=== PATIENT | female | born 1970 | race Caucasian/White ===

== ENCOUNTER 2023-05-31 13:15 | Emergency (ER) | payer OTHER ==
[~2023-05-31] VITALS: Ht 160 cm; Wt 59.0 kg
[2023-05-31] MEDS ORDERED: ATOR40TA PO (14:03)
[2023-05-31] MEDS ORDERED: MELA3TAB41 PO (14:03)
[2023-05-31] MEDS ORDERED: OLAN5TAB3 PO (14:03)
[2023-05-31] MEDS ORDERED: ASPI-1169 PO (14:03)
[2023-05-31] MEDS ORDERED: SENN-261 PO (14:03)
[2023-05-31] MEDS ORDERED: DOCU-141 PO (14:03)
[2023-05-31] MEDS ORDERED: CLON1TAB12 PO (14:03)
[2023-05-31] MEDS ORDERED: AMLO-213 PO (14:03)
[2023-05-31] MEDS ORDERED: FLUO20CA42 PO (14:03)
[2023-05-31 15:27] LABS: ALANINE AMINOTRANSFERASE 52 U/L (12-78); ALBUMIN 3.2 g/dL (3.4-5.0); ALCOHOL, BLOOD < 3 mg/dL (0-10); ALKALINE PHOSPHATASE 123 U/L (46-116); ASPARTATE AMINOTRANSFERASE 27 U/L (15-37); BILIRUBIN,DIRECT 0.1 mg/dL (0.0-0.2); BILIRUBIN,TOTAL 0.3 mg/dL (0.2-1.0); CALCIUM, SERUM 9.7 mg/dL (8.5-10.1); CARBON DIOXIDE 25 mmol/L (21-32); CHLORIDE 101 mmol/L (98-107); CREATININE 0.6 mg/dL (0.6-1.3); GLUCOSE 84 mg/dL (74-106); POTASSIUM 3.2 mmol/L (3.5-5.1); SODIUM SERUM 138 mmol/L (136-145); TOTAL PROTEIN, SERUM 7.7 g/dL (6.4-8.2); UREA NITROGEN, BLOOD 14 mg/dL (7-18)
[2023-05-31 15:34] LABS: ACETAMINOPHEN 0 ug/ml (10-30); SALICYLATE 2.2 mg/dL (2.8-20.0)
[2023-05-31 16:30] LABS: APPEARANCE,URINE CLOUDY (CLEAR); BILIRUBIN,URINE NEGATIVE (NEGATIVE); BLOOD, URINE 2+ Ery/uL (NEGATIVE); COLOR,URINE YELLOW (YELLOW); KETONES,URINE 1+ mg/dL (NEGATIVE); LEUKOCYTE ESTERASE ,URINE 3+ (NEGATIVE); NITRITE, URINE POSITIVE (NEGATIVE); PH,URINE 6.5 (5.0-8.0); PROTEIN,URINE NEGATIVE (NEGATIVE); UGLUCOSE NEGATIVE (NEGATIVE); UROBILINOGEN,URINE 0.2 EU/dL (0.2)
[2023-05-31 16:31] LABS: BASOPHILS % (AUTO) 0.3 % (0.0-2.0); EOSINOPHILS % (AUTO) 0.3 % (0.0-6.0); HEMATOCRIT 43 % (33-45); HEMOGLOBIN 14.8 g/dL (11.5-14.8); LYMPHOCYTES # (AUTO) 1.8 K/uL (0.8-4.8); MEAN CORPUSCULAR HEMOGLOBIN 30 PG (26.0-33.0); MEAN CORPUSCULAR HGB CONC 35 g/dl (31.0-36.0); MEAN CORPUSCULAR VOLUME 87 fL (82-100); MONOCYTES # (AUTO) 0.6 K/uL (0.1-1.30); MONOCYTES % (AUTO) 5.7 % (2.0-12.0); NEUTROPHILS # (AUTO) 7.4 K/uL (1.8-8.9); NEUTROPHILS % (AUTO) 75.7 % (43.0-81.0); PLATELET COUNT (AUTO) 246 K/uL (150-450); RED BLOOD CELL COUNT(AUTO) 4.92 MIL/uL (4.0-5.2); RED CELL DISTRIBUTION WIDTH 12.7 % (11.5-15.0); WHITE BLOOD COUNT (AUTO) 9.8 K/uL (4.3-11.0)
[2023-05-31 16:49] LABS: AMPHETAMINE, URINE NEGATIVE (NEGATIVE); BARBITURATE, URINE NEGATIVE (NEGATIVE); BENZODIAZEPINE, URINE NEGATIVE (NEGATIVE); CANNABINOID, URINE NEGATIVE (NEGATIVE); COCCAINE, URINE NEGATIVE (NEGATIVE); OPIATE, URINE NEGATIVE (NEGATIVE); PHENCYCLIDINE SCREEN,URINE NEGATIVE (NEGATIVE)
[2023-05-31] MEDS: CEFTRIAXONE 1 G in IV D5W 50 ML IV ONE (17:00)
[2023-05-31 18:07] LABS: ADD URINE CULTURE YES; BACTERIA,URINE 2+ /HPF (None Seen); SQUAMOUS EPITHELIAL CELL,UR Many /HPF (None Seen); WBC,URINE 21-50 /HPF (0-3); YEAST,URINE Few /HPF (None Seen)
[2023-05-31] MEDS ORDERED: CEFTRIAXONE 1GM BAG (ER ONLY) 50 ML IV ONE (19:16)
[2023-05-31] MEDS ORDERED: CEFD300C3 PO (21:18)
[2023-05-31] MEDS ORDERED: HALOPERIDOL LACTATE INJ 5 MG/ML VIAL ONE (21:22)
[2023-05-31] MEDS: LORAZEPAM INJ 2 MG/ML VIAL IM ONE (21:31)
[2023-05-31] MEDS ORDERED: diphenhydrAMINE HCL 50 MG/ML VIAL ONE (21:32)
[2023-05-31] MEDS: HALOPERIDOL LACTATE INJ 5 MG/ML VIAL IM ONE (21:55)
[2023-05-31] MEDS: diphenhydrAMINE HCL 50 MG/ML VIAL IM ONE (21:55)
[2023-06-01 09:39] VITALS: BP 110/84; TEMP 98.1; O2SAT 99
== END 2023-06-01 09:40 | disposition home or self-care (01) ==
LOC: ER 13:18
DX: N39.0 Urinary tract infection, site not specified (principal); R45.1 Restlessness and agitation; R46.1 Bizarre personal appearance; E87.6 Hypokalemia; E88.09 Other disorders of plasma-protein metabolism, not elsewhere classified; I10 Essential (primary) hypertension; E78.5 Hyperlipidemia, unspecified; Z86.73 Personal history of transient ischemic attack (TIA), and cerebral infarction without residual deficits
CPT/HCPCS: 99285; 96372 ×2; 96365; 85025; 80048; 87086; 80076; 81001; 36415; 80143; 80320; 80307; J1200; J1630; J0696; G0480

== ENCOUNTER 2023-06-05 10:41 | Inpatient (IN) | payer OTHER ==
[~2023-06-05] VITALS: Ht 160 cm; Wt 64.9 kg
[~2023-06-05 10:41] MED LIST: AMLO-213 PO; ASPI-1169 PO; ATOR40TA PO; CEFD300C3 PO; CLON1TAB12 PO; DOCU-141 PO; FLUO20CA42 PO; MELA3TAB41 PO; OLAN5TAB3 PO; SENN-261 PO
[2023-06-05 11:32] LABS: BASOPHILS % (AUTO) 0.2 % (0.0-2.0); EOSINOPHILS # (AUTO) 0.1 K/uL (0.0-0.7); EOSINOPHILS % (AUTO) 1.4 % (0.0-6.0); HEMATOCRIT 41 % (33-45); LYMPHOCYTES # (AUTO) 2.2 K/uL (0.8-4.8); LYMPHOCYTES % (AUTO) 30.3 % (20.0-44.0); MEAN CORPUSCULAR HEMOGLOBIN 30 PG (26.0-33.0); MEAN CORPUSCULAR HGB CONC 34 g/dl (31.0-36.0); MEAN CORPUSCULAR VOLUME 88 fL (82-100); MONOCYTES # (AUTO) 0.5 K/uL (0.1-1.30); MONOCYTES % (AUTO) 6.2 % (2.0-12.0); NEUTROPHILS # (AUTO) 4.5 K/uL (1.8-8.9); NEUTROPHILS % (AUTO) 61.9 % (43.0-81.0); PLATELET COUNT (AUTO) 280 K/uL (150-450); RED BLOOD CELL COUNT(AUTO) 4.71 MIL/uL (4.0-5.2); RED CELL DISTRIBUTION WIDTH 12.8 % (11.5-15.0); WHITE BLOOD COUNT (AUTO) 7.2 K/uL (4.3-11.0)
[2023-06-05 12:02] LABS: APPEARANCE,URINE CLEAR (CLEAR); BILIRUBIN,URINE NEGATIVE (NEGATIVE); BLOOD, URINE NEGATIVE Ery/uL (NEGATIVE); COLOR,URINE YELLOW (YELLOW); KETONES,URINE NEGATIVE (NEGATIVE); LEUKOCYTE ESTERASE ,URINE NEGATIVE (NEGATIVE); NITRITE, URINE POSITIVE (NEGATIVE); PROTEIN,URINE NEGATIVE (NEGATIVE); UGLUCOSE NEGATIVE (NEGATIVE); UROBILINOGEN,URINE 0.2 EU/dL (0.2)
[2023-06-05 12:14] LABS: CALCIUM, SERUM 9.1 mg/dL (8.5-10.1); CARBON DIOXIDE 27 mmol/L (21-32); CHLORIDE 106 mmol/L (98-107); CREATININE 0.7 mg/dL (0.6-1.3); GLUCOSE 105 mg/dL (74-106); POTASSIUM 3.7 mmol/L (3.5-5.1); SODIUM SERUM 140 mmol/L (136-145); UREA NITROGEN, BLOOD 9 mg/dL (7-18)
[2023-06-05 12:16] LABS: RBC,URINE 0-2 /HPF (0-2)
[2023-06-05 12:17] LABS: ADD URINE CULTURE YES; BACTERIA,URINE 1+ /HPF (None Seen); SQUAMOUS EPITHELIAL CELL,UR 0-2 /HPF (None Seen)
[2023-06-05 12:20] LABS: URIC ACID CRYSTALS,URINE Few /HPF (None Seen)
[2023-06-05 12:27] LABS: ALANINE AMINOTRANSFERASE 34 U/L (12-78); ALBUMIN 2.9 g/dL (3.4-5.0); ALCOHOL, BLOOD < 3 mg/dL (0-10); ALKALINE PHOSPHATASE 95 U/L (46-116); ASPARTATE AMINOTRANSFERASE 18 U/L (15-37); BILIRUBIN,DIRECT 0.1 mg/dL (0.0-0.2); BILIRUBIN,TOTAL 0.1 mg/dL (0.2-1.0)
[2023-06-05 12:28] LABS: ACETAMINOPHEN 0 ug/ml (10-30); SALICYLATE 1.8 mg/dL (2.8-20.0)
[2023-06-05 12:30] LABS: AMPHETAMINE, URINE NEGATIVE (NEGATIVE); BARBITURATE, URINE NEGATIVE (NEGATIVE); BENZODIAZEPINE, URINE NEGATIVE (NEGATIVE); CANNABINOID, URINE NEGATIVE (NEGATIVE); COCCAINE, URINE NEGATIVE (NEGATIVE); OPIATE, URINE NEGATIVE (NEGATIVE); PHENCYCLIDINE SCREEN,URINE NEGATIVE (NEGATIVE)
[2023-06-05] MEDS ORDERED: clonazePAM 1 MG TABLET PO PRN (14:30)
[2023-06-05] MEDS ORDERED: SENNOSIDES 8.6 MG TABLET PO PRN (14:30)
[2023-06-05] MEDS ORDERED: Z GUARD REMEDY 4 OZ OINT TP PRN (14:30)
[2023-06-05] MEDS ORDERED: ACETAMINOPHEN 325 MG TABLET PO PRN (14:30)
[2023-06-05] MEDS ORDERED: ONDANSETRON HCL/PF 4 MG/2 ML VIAL IVP PRN (14:30)
[2023-06-05 16:00] VITALS: BP 135/88; TEMP 98.1; O2SAT 96
[2023-06-05] MEDS ORDERED: ENOXAPARIN SODIUM 40 MG/0.4 ML DISP.SYRIN SQ ONE (17:26)
[2023-06-05] MEDS: ENOXAPARIN SODIUM 40 MG/0.4 ML DISP.SYRIN SQ SCH (17:30)
[2023-06-05 20:00] VITALS: BP 111/97; TEMP 98.1; O2SAT 94
[2023-06-06 04:00] VITALS: BP 128/76; TEMP 97.7; O2SAT 94
[2023-06-06 07:34] LABS: BASOPHILS % (AUTO) 0.5 % (0.0-2.0); EOSINOPHILS # (AUTO) 0.1 K/uL (0.0-0.7); EOSINOPHILS % (AUTO) 1.3 % (0.0-6.0); HEMATOCRIT 41 % (33-45); HEMOGLOBIN 14.1 g/dL (11.5-14.8); LYMPHOCYTES # (AUTO) 2.1 K/uL (0.8-4.8); LYMPHOCYTES % (AUTO) 30.3 % (20.0-44.0); MEAN CORPUSCULAR HEMOGLOBIN 30 PG (26.0-33.0); MEAN CORPUSCULAR HGB CONC 34 g/dl (31.0-36.0); MEAN CORPUSCULAR VOLUME 87 fL (82-100); MONOCYTES # (AUTO) 0.5 K/uL (0.1-1.30); MONOCYTES % (AUTO) 7.8 % (2.0-12.0); NEUTROPHILS # (AUTO) 4.1 K/uL (1.8-8.9); NEUTROPHILS % (AUTO) 60.1 % (43.0-81.0); PLATELET COUNT (AUTO) 286 K/uL (150-450); RED BLOOD CELL COUNT(AUTO) 4.71 MIL/uL (4.0-5.2); RED CELL DISTRIBUTION WIDTH 12.6 % (11.5-15.0); WHITE BLOOD COUNT (AUTO) 6.8 K/uL (4.3-11.0)
[2023-06-06] MEDS: FLUOXETINE HCL 20 MG CAPSULE PO SCH (08:19)
[2023-06-06] MEDS: PANTOPRAZOLE 40 MG TABLET.DR PO SCH (08:19)
[2023-06-06] MEDS: DOCUSATE SODIUM 100 MG CAPSULE PO SCH (08:19)
[2023-06-06] MEDS: ASPIRIN 81 MG TAB.CHEW PO SCH (08:19)
[2023-06-06] MEDS: ATORVASTATIN 40 MG TABLET PO SCH (08:19)
[2023-06-06 09:01] LABS: CALCIUM, SERUM 9.1 mg/dL (8.5-10.1); CREATININE 0.6 mg/dL (0.6-1.3); MAGNESIUM 1.7 mg/dL (1.8-2.4); PHOSPHORUS 3.1 mg/dL (2.5-4.9); POTASSIUM 3.5 mmol/L (3.5-5.1)
[2023-06-06] MEDS: OLANZAPINE ZYDIS 5 MG TAB.RAPDIS PO SCH (12:03)
[2023-06-06 12:04] VITALS: BP 122/74; TEMP 98; O2SAT 96
[2023-06-06] MEDS: clonazePAM 0.5 MG TABLET PO PRN (14:14)
[2023-06-06] MEDS ORDERED: HALOPERIDOL DECANOATE IM 100 MG/ML AMPUL IM ONE (14:30)
[2023-06-06] MEDS ORDERED: LORAZEPAM INJ 2 MG/ML VIAL IV PRN (14:30)
[2023-06-06] MEDS: HALOPERIDOL LACTATE INJ 5 MG/ML VIAL IM ONE (14:46)
[2023-06-06] MEDS: LORAZEPAM 1 MG TABLET PO PRN (14:46)
[2023-06-06 20:00] VITALS: BP 121/80; TEMP 98.6; O2SAT 95
[2023-06-07 04:00] VITALS: BP 115/78; TEMP 97.3; O2SAT 95
[2023-06-07 08:42] VITALS: BP 124/79; TEMP 98.2; O2SAT 97
[2023-06-07 12:00] VITALS: BP 120/70; TEMP 98; O2SAT 98
[2023-06-07 20:00] VITALS: BP 116/72; TEMP 99; O2SAT 96
[2023-06-08 04:00] VITALS: BP 124/67; TEMP 98.2; O2SAT 96
[2023-06-08 08:00] VITALS: BP 126/93; TEMP 97.4; O2SAT 94
[2023-06-08] MEDS: OLANZAPINE 5 MG TABLET PO PRN (11:05)
[2023-06-08 12:00] VITALS: BP 116/90; TEMP 98; O2SAT 96
[2023-06-08] MEDS: OLANZAPINE ZYDIS 5 MG TAB.RAPDIS PO SCH (14:59)
[2023-06-08 16:00] VITALS: BP 151/80; TEMP 97.9; O2SAT 96
[2023-06-08] MEDS: Magnesium 1GM/D5W 100ML PREMIX 100 ML IV SCH (17:38)
[2023-06-08 20:00] VITALS: BP 137/82; TEMP 99; O2SAT 95
[2023-06-09 04:00] VITALS: BP 140/75; TEMP 98.9; O2SAT 97
[2023-06-09] MEDS: FLUOXETINE HCL 20 MG CAPSULE PO SCH (08:41)
[2023-06-09] MEDS ORDERED: FLUOXETINE HCL 20 MG CAPSULE PO SCH (09:00)
[2023-06-09 12:00] VITALS: BP 120/79; TEMP 98; O2SAT 97
[2023-06-09] MEDS ORDERED: DIVALPROEX SODIUM 125 MG TABLET.DR PO SCH (12:30)
[2023-06-09] MEDS: OLANZAPINE 10 MG VIAL IM ONE (12:32)
[2023-06-09] MEDS: DIVALPROEX SODIUM 250 MG TABLET.DR PO SCH (15:34)
[2023-06-09 20:00] VITALS: BP 121/72; TEMP 97.6; O2SAT 97
[2023-06-09] MEDS: OLANZAPINE ZYDIS 5 MG TAB.RAPDIS PO SCH (21:51)
[2023-06-10 04:00] VITALS: BP 149/69; TEMP 98.1; O2SAT 97
[2023-06-10 06:44] LABS: BASOPHILS % (AUTO) 0.3 % (0.0-2.0); EOSINOPHILS # (AUTO) 0.1 K/uL (0.0-0.7); EOSINOPHILS % (AUTO) 0.7 % (0.0-6.0); HEMATOCRIT 41 % (33-45); LYMPHOCYTES # (AUTO) 2.5 K/uL (0.8-4.8); LYMPHOCYTES % (AUTO) 30.9 % (20.0-44.0); MEAN CORPUSCULAR HEMOGLOBIN 30 PG (26.0-33.0); MEAN CORPUSCULAR HGB CONC 34 g/dl (31.0-36.0); MEAN CORPUSCULAR VOLUME 88 fL (82-100); MONOCYTES # (AUTO) 0.6 K/uL (0.1-1.30); MONOCYTES % (AUTO) 7.8 % (2.0-12.0); NEUTROPHILS # (AUTO) 4.9 K/uL (1.8-8.9); NEUTROPHILS % (AUTO) 60.3 % (43.0-81.0); PLATELET COUNT (AUTO) 276 K/uL (150-450); RED CELL DISTRIBUTION WIDTH 12.7 % (11.5-15.0); WHITE BLOOD COUNT (AUTO) 8.1 K/uL (4.3-11.0)
[2023-06-10 07:04] LABS: CALCIUM, SERUM 9.1 mg/dL (8.5-10.1); CREATININE 0.6 mg/dL (0.6-1.3); PHOSPHORUS 3.2 mg/dL (2.5-4.9); POTASSIUM 3.8 mmol/L (3.5-5.1)
[2023-06-10 08:00] VITALS: BP 126/72; TEMP 98.5; O2SAT 98
[2023-06-10] MEDS ORDERED: DIVA250T4 PO (14:19)
[2023-06-10] MEDS ORDERED: SULF1TAB48 PO (14:19)
[2023-06-10] MEDS ORDERED: FAMO-131 PO (14:19)
[2023-06-10 16:00] VITALS: BP 128/81; TEMP 97.9; O2SAT 98
[2023-06-10 20:00] VITALS: BP 113/74; TEMP 97; O2SAT 97
[2023-06-11 04:00] VITALS: BP 114/68; TEMP 97.6; O2SAT 97
[2023-06-11 08:00] VITALS: BP 124/70; TEMP 97.5; O2SAT 97
[2023-06-11] MEDS ORDERED: LORAZEPAM INJ 2 MG/ML VIAL IM ONE (10:30)
[2023-06-11] MEDS: risperiDONE 1 MG TABLET PO SCH (10:30)
[2023-06-11] MEDS: DIVALPROEX SODIUM 250 MG TABLET.DR PO ONE (12:24)
[2023-06-11 16:00] VITALS: BP 137/82; TEMP 98; O2SAT 99
[2023-06-11] MEDS: DIVALPROEX SODIUM 250 MG TABLET.DR PO SCH (17:54)
[2023-06-11 20:00] VITALS: BP 119/74; TEMP 97.9; O2SAT 98
[2023-06-11] MEDS: OLANZAPINE ZYDIS 5 MG TAB.RAPDIS PO SCH (21:54)
[2023-06-12 04:00] VITALS: BP 118/63; TEMP 98.1; O2SAT 97
[2023-06-12 08:00] VITALS: BP 110/76; TEMP 97.7; O2SAT 96
[2023-06-12 16:00] VITALS: BP 123/75; TEMP 98.2; O2SAT 95
[2023-06-12 20:00] VITALS: BP 125/70; TEMP 98.1; O2SAT 95
[2023-06-13 04:00] VITALS: BP 132/68; TEMP 98.1; O2SAT 95
[2023-06-13 08:00] VITALS: BP 118/77; TEMP 97.8; O2SAT 95
[2023-06-13 16:00] VITALS: BP 119/61; TEMP 97.8; O2SAT 97
[2023-06-13 20:00] VITALS: BP 105/62; TEMP 97.7; O2SAT 96
[2023-06-14 04:00] VITALS: BP 133/67; TEMP 97.9; O2SAT 96
[2023-06-14 08:00] VITALS: BP 131/64; TEMP 98.6; O2SAT 98
[2023-06-14 12:00] VITALS: BP 131/66; TEMP 98.6; O2SAT 96
[2023-06-14 16:00] VITALS: BP 137/74; TEMP 97.7; O2SAT 94
[2023-06-14 20:00] VITALS: BP 111/58; TEMP 97.7; O2SAT 94
[2023-06-15 04:00] VITALS: BP 144/75; TEMP 98; O2SAT 99
[2023-06-15 08:00] VITALS: BP 142/84; TEMP 98; O2SAT 95
[2023-06-15 16:00] VITALS: BP 142/84; TEMP 98; O2SAT 95
[2023-06-15 20:00] VITALS: BP 113/48; TEMP 98.2; O2SAT 95
[2023-06-16 04:00] VITALS: BP 122/65; TEMP 98.7; O2SAT 95
[2023-06-16 08:00] VITALS: BP 127/72; TEMP 97.2; O2SAT 95
[2023-06-16 16:00] VITALS: BP 150/82; TEMP 98.7; O2SAT 95
[2023-06-16 21:47] VITALS: BP 133/70; TEMP 98.7; O2SAT 95
[2023-06-16 22:00] VITALS: BP 133/70; TEMP 98.7; O2SAT 95
[2023-06-17 08:00] VITALS: BP 117/80; TEMP 99; O2SAT 95
[2023-06-17] MEDS: MAGNESIUM HYDROXIDE 30 ML UDC PO PRN (09:35)
[2023-06-17] MEDS ORDERED: POLYETHYLENE GLYCOL 3350 17 GM POWD.PACK PO PRN (11:00)
[2023-06-17] MEDS: OLANZAPINE 10 MG VIAL IM ONE (11:18)
[2023-06-17 16:00] VITALS: BP 121/72; TEMP 98.7; O2SAT 95
[2023-06-17 20:00] VITALS: BP 130/78; TEMP 98; O2SAT 96
[2023-06-18 04:00] VITALS: BP 134/88; TEMP 97.6; O2SAT 95
[2023-06-18 08:00] VITALS: BP 115/82; TEMP 97.7; O2SAT 100
[2023-06-18 20:00] VITALS: BP 98/61; TEMP 98.5; O2SAT 97
[2023-06-19 04:00] VITALS: BP 138/77; TEMP 97.7; O2SAT 97
[2023-06-19 08:00] VITALS: BP 124/75; TEMP 98; O2SAT 98
[2023-06-19 09:46] LABS: BASOPHILS % (AUTO) 0.3 % (0.0-2.0); EOSINOPHILS # (AUTO) 0.1 K/uL (0.0-0.7); EOSINOPHILS % (AUTO) 0.9 % (0.0-6.0); HEMATOCRIT 41 % (33-45); HEMOGLOBIN 13.6 g/dL (11.5-14.8); LYMPHOCYTES % (AUTO) 35.2 % (20.0-44.0); MEAN CORPUSCULAR HEMOGLOBIN 29 PG (26.0-33.0); MEAN CORPUSCULAR HGB CONC 33 g/dl (31.0-36.0); MEAN CORPUSCULAR VOLUME 88 fL (82-100); MONOCYTES # (AUTO) 0.4 K/uL (0.1-1.30); MONOCYTES % (AUTO) 6.3 % (2.0-12.0); NEUTROPHILS # (AUTO) 3.2 K/uL (1.8-8.9); NEUTROPHILS % (AUTO) 57.3 % (43.0-81.0); PLATELET COUNT (AUTO) 220 K/uL (150-450); RED BLOOD CELL COUNT(AUTO) 4.67 MIL/uL (4.0-5.2); RED CELL DISTRIBUTION WIDTH 12.6 % (11.5-15.0); WHITE BLOOD COUNT (AUTO) 5.6 K/uL (4.3-11.0)
[2023-06-19 10:44] LABS: CALCIUM, SERUM 9.2 mg/dL (8.5-10.1); CREATININE 0.6 mg/dL (0.6-1.3); PHOSPHORUS 4.1 mg/dL (2.5-4.9); POTASSIUM 4.2 mmol/L (3.5-5.1)
[2023-06-19 16:00] VITALS: BP 125/74; TEMP 98; O2SAT 98
[2023-06-20 04:00] VITALS: BP 110/61; TEMP 97.4; O2SAT 96
[2023-06-20 16:02] VITALS: BP 138/77; TEMP 97.7; O2SAT 97
[2023-06-20 21:02] VITALS: BP 112/68; TEMP 97.7
[2023-06-21 04:00] VITALS: BP 130/71; TEMP 97.6; O2SAT 94
== END 2023-06-21 15:20 | DRG 463 ==
LOC: ER 10:46 → MEDSG1 17:07
PROVIDERS: ADMIT Nurse Practitioner Family; ATTEND Internal Medicine
DX: N39.0 Urinary tract infection, site not specified (principal); G93.41 Metabolic encephalopathy; E88.09 Other disorders of plasma-protein metabolism, not elsewhere classified; F01.518 Vascular dementia, unspecified severity, with other behavioral disturbance; F05 Delirium due to known physiological condition; G93.89 Other specified disorders of brain; R62.7 Adult failure to thrive; B96.1 Klebsiella pneumoniae [K. pneumoniae] as the cause of diseases classified elsewhere; E78.5 Hyperlipidemia, unspecified; E83.42 Hypomagnesemia; F01.53 Vascular dementia, unspecified severity, with mood disturbance; I10 Essential (primary) hypertension; I69.354 Hemiplegia and hemiparesis following cerebral infarction affecting left non-dominant side; R47.01 Aphasia; Z79.82 Long term (current) use of aspirin; Z87.891 Personal history of nicotine dependence; F31.9 Bipolar disorder, unspecified; Z20.822 Contact with and (suspected) exposure to COVID-19; Z68.25 Body mass index [BMI] 25.0-25.9, adult; F25.9 Schizoaffective disorder, unspecified
CPT/HCPCS: 36415; 70450-TC; 80048-TC; 80061-TC; 80076-TC; 81001; 83735-TC; 84100-TC; 85025-TC; 87081-TC; 87086-TC; 97110-TC; 97112-TC; 97164; 97530-TC; A6253; G0378; G0480; J1630; J1650; J3475; J3490; J7050

== ENCOUNTER 2023-06-23 17:40 | Inpatient (IN) | payer OTHER ==
[~2023-06-23] VITALS: Ht 160 cm; Wt 64.9 kg
[~2023-06-23 17:40] MED LIST changes: -CEFD300C3 PO; +DIVA250T4 PO; +FAMO-131 PO; +SULF1TAB48 PO
[2023-06-23 18:29] LABS: BASOPHILS % (AUTO) 0.2 % (0.0-2.0); EOSINOPHILS % (AUTO) 0.1 % (0.0-6.0); HEMATOCRIT 47 % (33-45); HEMOGLOBIN 15.7 g/dL (11.5-14.8); LYMPHOCYTES # (AUTO) 1.5 K/uL (0.8-4.8); LYMPHOCYTES % (AUTO) 16.2 % (20.0-44.0); MEAN CORPUSCULAR HEMOGLOBIN 30 PG (26.0-33.0); MEAN CORPUSCULAR HGB CONC 34 g/dl (31.0-36.0); MEAN CORPUSCULAR VOLUME 88 fL (82-100); MONOCYTES # (AUTO) 0.6 K/uL (0.1-1.30); MONOCYTES % (AUTO) 6.3 % (2.0-12.0); NEUTROPHILS # (AUTO) 7.1 K/uL (1.8-8.9); NEUTROPHILS % (AUTO) 77.2 % (43.0-81.0); PLATELET COUNT (AUTO) 224 K/uL (150-450); RED BLOOD CELL COUNT(AUTO) 5.32 MIL/uL (4.0-5.2); RED CELL DISTRIBUTION WIDTH 12.7 % (11.5-15.0); WHITE BLOOD COUNT (AUTO) 9.2 K/uL (4.3-11.0)
[2023-06-23 19:01] LABS: CALCIUM, SERUM 9.8 mg/dL (8.5-10.1); CARBON DIOXIDE 28 mmol/L (21-32); CHLORIDE 101 mmol/L (98-107); CREATININE 0.7 mg/dL (0.6-1.3); GLUCOSE 118 mg/dL (74-106); POTASSIUM 4.1 mmol/L (3.5-5.1); SODIUM SERUM 137 mmol/L (136-145); UREA NITROGEN, BLOOD 16 mg/dL (7-18)
[2023-06-23 19:07] LABS: ACETAMINOPHEN <10 ug/ml (10-30); ALANINE AMINOTRANSFERASE 16 U/L (12-78); ALBUMIN 3.3 g/dL (3.4-5.0); ALCOHOL, BLOOD < 3 mg/dL (0-10); ALKALINE PHOSPHATASE 102 U/L (46-116); ASPARTATE AMINOTRANSFERASE 15 U/L (15-37); BILIRUBIN,DIRECT 0.1 mg/dL (0.0-0.2); BILIRUBIN,TOTAL 0.2 mg/dL (0.2-1.0); SALICYLATE 1.7 mg/dL (2.8-20.0); TOTAL PROTEIN, SERUM 7.7 g/dL (6.4-8.2)
[2023-06-23] MEDS ORDERED: DIVA-76 PO (19:08)
[2023-06-23] MEDS ORDERED: FAMO20TA80 PO (19:08)
[2023-06-23] MEDS ORDERED: SULF1TAB48 PO (19:08)
[2023-06-23 19:15] LABS: APPEARANCE,URINE SLIGHTLY CLOUDY (CLEAR); BILIRUBIN,URINE NEGATIVE (NEGATIVE); BLOOD, URINE TRACE-INTA Ery/uL (NEGATIVE); COLOR,URINE YELLOW (YELLOW); KETONES,URINE NEGATIVE (NEGATIVE); LEUKOCYTE ESTERASE ,URINE 3+ (NEGATIVE); NITRITE, URINE POSITIVE (NEGATIVE); PROTEIN,URINE NEGATIVE (NEGATIVE); UGLUCOSE NEGATIVE (NEGATIVE); UROBILINOGEN,URINE 0.2 EU/dL (0.2)
[2023-06-23 19:22] LABS: AMPHETAMINE, URINE NEGATIVE (NEGATIVE); BARBITURATE, URINE NEGATIVE (NEGATIVE); BENZODIAZEPINE, URINE NEGATIVE (NEGATIVE); CANNABINOID, URINE NEGATIVE (NEGATIVE); COCCAINE, URINE NEGATIVE (NEGATIVE); OPIATE, URINE NEGATIVE (NEGATIVE); PHENCYCLIDINE SCREEN,URINE NEGATIVE (NEGATIVE)
[2023-06-23 19:42] LABS: ADD URINE CULTURE YES; BACTERIA,URINE 3+ /HPF (None Seen); SQUAMOUS EPITHELIAL CELL,UR 0-2 /HPF (None Seen); WBC,URINE 51-80 /HPF (0-3)
[2023-06-23] MEDS ORDERED: CEFTRIAXONE 1GM BAG (ER ONLY) 50 ML IV ONE (20:54)
[2023-06-23] MEDS: IV NS 0.9% 1,000 ML BAG IV ONE (21:00)
[2023-06-23] MEDS: CEFTRIAXONE 1GM BAG (ER ONLY) 1 GM/50 ML PIGGYBACK IV ONE (21:00)
[2023-06-24] MEDS ORDERED: ACETAMINOPHEN 325 MG TABLET ONE (01:15)
[2023-06-24] MEDS: ACETAMINOPHEN 325 MG TABLET PO ONE (01:46)
[2023-06-24] MEDS ORDERED: ACETAMINOPHEN ES 500 MG TABLET ONE (20:24)
[2023-06-24] MEDS: ACETAMINOPHEN ES 500 MG TABLET PO ONE (20:35)
[2023-06-25] MEDS ORDERED: ACETAMINOPHEN ES 500 MG TABLET ONE (03:57)
[2023-06-25] MEDS: ACETAMINOPHEN ES 500 MG TABLET PO ONE (04:01)
[2023-06-26] MEDS ORDERED: MAGNESIUM HYDROXIDE 30 ML UDC PO PRN (13:00)
[2023-06-26] MEDS ORDERED: ONDANSETRON HCL/PF 4 MG/2 ML VIAL IVP PRN (13:00)
[2023-06-26] MEDS ORDERED: MAG HYDROX/AL HYDROX/SIMETH 30 ML UDC PO PRN (13:00)
[2023-06-26] MEDS ORDERED: HYDROCODONE/APAP 5/325MG TABLET PO PRN (13:00)
[2023-06-26] MEDS ORDERED: TEMAZEPAM 15 MG CAPSULE PO PRN (13:00)
[2023-06-26] MEDS ORDERED: ACETAMINOPHEN 325 MG TABLET ONE (13:25)
[2023-06-26] MEDS ORDERED: PANTOPRAZOLE 40 MG TABLET.DR PO ONE (13:26)
[2023-06-26] MEDS: ACETAMINOPHEN 325 MG TABLET PO PRN (13:30)
[2023-06-26] MEDS: PANTOPRAZOLE 40 MG TABLET.DR PO SCH (13:30)
[2023-06-26] MEDS: CEFTRIAXONE 1 G in IV D5W 50 ML IV SCH (14:20)
[2023-06-26] MEDS: IV NS 0.9% 1,000 ML IV PRN (14:20)
[2023-06-26 20:00] VITALS: BP 123/69; TEMP 97.7; O2SAT 95
[2023-06-27] MEDS: Z GUARD REMEDY 4 OZ OINT TP PRN (00:32)
[2023-06-27 06:49] LABS: BASOPHILS % (AUTO) 0.4 % (0.0-2.0); EOSINOPHILS # (AUTO) 0.1 K/uL (0.0-0.7); EOSINOPHILS % (AUTO) 1.4 % (0.0-6.0); HEMATOCRIT 41 % (33-45); HEMOGLOBIN 13.8 g/dL (11.5-14.8); LYMPHOCYTES # (AUTO) 2.6 K/uL (0.8-4.8); MEAN CORPUSCULAR HEMOGLOBIN 29 PG (26.0-33.0); MEAN CORPUSCULAR HGB CONC 34 g/dl (31.0-36.0); MEAN CORPUSCULAR VOLUME 88 fL (82-100); MONOCYTES # (AUTO) 0.7 K/uL (0.1-1.30); MONOCYTES % (AUTO) 10.5 % (2.0-12.0); NEUTROPHILS # (AUTO) 3.5 K/uL (1.8-8.9); NEUTROPHILS % (AUTO) 50.7 % (43.0-81.0); PLATELET COUNT (AUTO) 206 K/uL (150-450); RED BLOOD CELL COUNT(AUTO) 4.68 MIL/uL (4.0-5.2); RED CELL DISTRIBUTION WIDTH 12.9 % (11.5-15.0)
[2023-06-27 07:05] LABS: CALCIUM, SERUM 9.3 mg/dL (8.5-10.1); CREATININE 0.7 mg/dL (0.6-1.3); MAGNESIUM 1.8 mg/dL (1.8-2.4); PHOSPHORUS 4.2 mg/dL (2.5-4.9); POTASSIUM 3.7 mmol/L (3.5-5.1)
[2023-06-27 08:00] VITALS: BP 146/88; TEMP 99.3; O2SAT 96
[2023-06-27] MEDS: MORPHINE SULFATE INJ 2 MG/ML DISP.SYRIN IV PRN (12:03)
[2023-06-27 16:00] VITALS: BP 183/92; TEMP 98.4; O2SAT 98
[2023-06-27 20:48] VITALS: BP 169/87; TEMP 97.9; O2SAT 95
[2023-06-28] MEDS: AMLODIPINE BESYLATE 5 MG TABLET PO SCH (02:48)
[2023-06-28 07:30] VITALS: BP_SYST 142; BP_SYST 146; BP_DIAS 65; BP_DIAS 69; TEMP 98.4; TEMP 99; O2SAT 100; O2SAT 96
[2023-06-28] MEDS ORDERED: CLONIDINE HCL 0.1 MG TABLET PO PRN (08:00)
[2023-06-28 08:12] LABS: CALCIUM, SERUM 9.2 mg/dL (8.5-10.1); CREATININE 0.5 mg/dL (0.6-1.3); POTASSIUM 3.4 mmol/L (3.5-5.1)
[2023-06-28 08:34] LABS: BASOPHILS % (AUTO) 0.2 % (0.0-2.0); EOSINOPHILS % (AUTO) 0.2 % (0.0-6.0); HEMATOCRIT 44 % (33-45); LYMPHOCYTES % (AUTO) 20.8 % (20.0-44.0); MEAN CORPUSCULAR HEMOGLOBIN 30 PG (26.0-33.0); MEAN CORPUSCULAR HGB CONC 34 g/dl (31.0-36.0); MEAN CORPUSCULAR VOLUME 87 fL (82-100); MONOCYTES # (AUTO) 0.8 K/uL (0.1-1.30); MONOCYTES % (AUTO) 8.3 % (2.0-12.0); NEUTROPHILS # (AUTO) 6.7 K/uL (1.8-8.9); NEUTROPHILS % (AUTO) 70.5 % (43.0-81.0); PLATELET COUNT (AUTO) 267 K/uL (150-450); RED BLOOD CELL COUNT(AUTO) 5.06 MIL/uL (4.0-5.2); RED CELL DISTRIBUTION WIDTH 12.8 % (11.5-15.0); WHITE BLOOD COUNT (AUTO) 9.4 K/uL (4.3-11.0)
[2023-06-28] MEDS: hydrALAZINE HCL IV 20 MG VIAL IV PRN (09:13)
[2023-06-28 09:43] VITALS: BP 148/74; TEMP 97.8; O2SAT 97
[2023-06-28] MEDS ORDERED: LEVO500T90 PO (09:50)
[2023-06-28] MEDS: POTASSIUM CHLORIDE 20 MEQ TAB.PRT.SR PO SCH (10:07)
== END 2023-06-28 17:00 | DRG 463 ==
LOC: ER 17:45 → MED 06-26 13:22 → UNDODISIN 06-28 15:53
PROVIDERS: ADMIT Nurse Practitioner Acute Care; ATTEND Internal Medicine
DX: N39.0 Urinary tract infection, site not specified (principal); G93.49 Other encephalopathy; D68.69 Other thrombophilia; F01.50 Vascular dementia, unspecified severity, without behavioral disturbance, psychotic disturbance, mood disturbance, and anxiety; I69.354 Hemiplegia and hemiparesis following cerebral infarction affecting left non-dominant side; F20.9 Schizophrenia, unspecified; I69.322 Dysarthria following cerebral infarction; I10 Essential (primary) hypertension; E78.5 Hyperlipidemia, unspecified; Z79.82 Long term (current) use of aspirin; Z87.891 Personal history of nicotine dependence; Z20.822 Contact with and (suspected) exposure to COVID-19; Z74.09 Other reduced mobility; B96.89 Other specified bacterial agents as the cause of diseases classified elsewhere; B96.1 Klebsiella pneumoniae [K. pneumoniae] as the cause of diseases classified elsewhere
CPT/HCPCS: 36415; 80048-TC; 80076-TC; 81001; 83735-TC; 84100-TC; 84484-TC; 85025-TC; 87081-TC; 87086-TC; 92526; 92611-TC; 97110-TC; 97112-TC; 97530-TC; A4223; G0378; G0480; J0360; J0696; J2270; J7030; J7060